=== PATIENT | male | born 1955 | race Two or more races ===

== ENCOUNTER 2025-01-21 00:04 | Emergency (ER) | payer MEDICARE, OTHER ==
[~2025-01-21] VITALS: Ht 172.7 cm; Wt 68.2 kg
[2025-01-21 00:17] VITALS: BP 124/86; PULSE 78; RESP 16; TEMP 98.4; O2SAT 97
--- NOTE | 2025-01-21 01:22 | DVH ---
EXAM: CT HEAD WITHOUT CONTRAST INDICATION: head injury TECHNIQUE: CT of the head without intravenous contrast. Radiation Dose Information: CT Dose: CTDI volume is 56.63 mGy. Dose-length product is 906.04 mGy*cm The dose indicators for CT are the volume Computed Tomography (CT) Dose Index (CTDIvol) and the Dose Length Product (DLP), and are measured in units of mGy and mGy-cm, respectively. These indicators are not patient dose, but values generated from the CT scanner acquisition factors. The report includes radiation exposure data for exposures received during this examination. COMPARISON: None FINDINGS: There is no evidence of acute intracranial hemorrhage, extra-axial collection, mass effect, midline shift, herniation or hydrocephalus. The ventricles, sulci and cisterns are age appropriate. The hearn-white differentiation is intact. Patchy periventricular and subcortical white matter hypoattenuation is nonspecific but may be related to small vessel ischemic disease. The visualized paranasal sinuses and mastoid air cells are clear. The surrounding soft tissues and osseous structures are unremarkable. IMPRESSION: No acute intracranial abnormality.
[2025-01-21] MEDS ORDERED: AMOX875T4 PO (02:00)
[2025-01-21] MEDS ORDERED: TETANUS-DIPTH-ACEL PERTUSSIS 0.5ML SYR Tdap IM ONE (02:00)
[2025-01-21] MEDS ORDERED: ONDANSETRON ODT 4 MG TAB PO ONE (02:00)
[2025-01-21] MEDS ORDERED: IBUP1TAB4 PO (02:00)
[2025-01-21] MEDS ORDERED: HYDROcodone-ACET 5/325MG TAB PO ONE (02:00)
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
[2025-01-23] MEDS ORDERED: IOHEXOL 300 MG/ML 100ML BOTTLE IJ ONE (20:23)
== END 2025-01-21 02:44 | disposition home or self-care (01) ==
LOC: EDBD 00:04 → ER 00:04
DX: S01.01XA Laceration without foreign body of scalp, initial encounter (principal); S01.411A Laceration without foreign body of right cheek and temporomandibular area, initial encounter; Y08.89XA Assault by other specified means, initial encounter; Y93.89 Activity, other specified; Y92.89 Other specified places as the place of occurrence of the external cause; Y99.8 Other external cause status
CPT/HCPCS: 12001; 12011; 70450; 99284; A4649